=== PATIENT | female | born 1985 | race Two or more races ===

== ENCOUNTER 2016-05-04 14:55 | Emergency (ER) | payer MEDICARE, OTHER ==
[~2016-05-04] VITALS: Ht 167.6 cm; Wt 49.9 kg
[2016-05-04 15:27] VITALS: BP 118/82
== END 2016-05-04 20:32 | disposition left against medical advice (07) ==
LOC: ER 15:11
DX: M54.2 Cervicalgia (principal); R51 Headache; Z53.21 Procedure and treatment not carried out due to patient leaving prior to being seen by health care provider
CPT/HCPCS: 70450; 72125